=== PATIENT | female | born 2005 | race Two or more races ===

== ENCOUNTER 2024-05-16 09:58 | Inpatient (IN) | payer OTHER, MEDICAID ==
[~2024-05-16] VITALS: Ht 152.4 cm; Wt 53.5 kg
[2024-05-16 10:41] LABS: Basophils # (auto) 0.1 10 ^3/uL (0-0.2); Basophils % (auto) 1.2 % (0.0-2.0); Eosinophils # (auto) 0.1 10 ^3/uL (0-0.8); Eosinophils % (auto) 0.9 % (0.0-7.0); Hematocrit 33.9 % (36.0-46.0); Hemoglobin 11.9 g/dL (12.2-16.2); Lymphocytes % (auto) 19.5 % (10.0-50.0); Mean Corpuscular Hemoglobin 31.4 pg (28.0-32.0); Mean Corpuscular Hgb Conc. 35.1 g/dL (32.0-36.0); Mean Corpuscular Volume 89.6 fL (80.0-100.0); Monocytes # (auto) 0.6 10 ^3/uL (0-1.3); Monocytes % (auto) 5.4 % (0.0-12.0); Neutrophils # (auto) 7.5 10 ^3/uL (1.6-8.6); Platelet Count (auto) 261 10^3/uL (140-450); Red Blood Cells 3.78 10^6/uL (4.0-5.20); Red Cell Distribution Width 14.2 % (11.8-14.3); White Blood Cell 10.3 10^3/uL (4.4-10.8)
[2024-05-16 10:59] LABS: Albumin 4.1 g/dL (3.2-4.8); Anion Gap 12 (5-15); Aspartate Aminotransferase 22 U/L (13-40); BUN/Creatinine Ratio 10.9 (10.0-20.0); Calcium 9.5 mg/dL (8.7-10.4); Carbon Dioxide 21 mmol/L (20-31); Chloride 104 mmol/L (98-107); Glucose 81 mg/dL (74-106); Potassium 3.9 mmol/L (3.5-5.1); Sodium 137 mmol/L (136-145)
[2024-05-16 11:00] LABS: Alanine Aminotransferase < 9 U/L (7-40); Alkaline Phosphatase 176 U/L (46-116); Bilirubin, Total 0.6 mg/dL (0.2-1.0); Blood Urea Nitrogen 7 mg/dL (9-23)
[2024-05-16] MEDS ORDERED: NALBUPHINE HCL 10 MG/1ml INJECTION IV PRN (11:00)
[2024-05-16 11:16] LABS: INR 0.89 (0.9-1.15); Partial Thromboplastin Time 25.4 SEC (24.5-34.5); Prothrombin Time 9.5 sec (9.3-11.8)
[2024-05-16 11:29] LABS: Urine Bacteria None Seen /hpf (None Seen)
[2024-05-16 11:56] LABS: Amphetamine Screen, Urine Neg (NEGATIVE); Barbiturate Scree,Urine Neg (NEGATIVE); Benzodiazephine Screen, Urine Neg (NEGATIVE); Cannabinoid Screen, Urine Neg (NEGATIVE); Cocaine Screen, Urine Neg (NEGATIVE); Opiate Scree,Urine Neg (NEGATIVE); Phencyclidine Screen, Urine Neg (NEGATIVE)
--- NOTE | 2024-05-16 12:02 | DVH ---
LIMITED OB ULTRASOUND > 14 WKS: HISTORY: labor. TECHNIQUE: Multiple real-time grayscale images of the gravid uterus with duplex Doppler color flow an d M-mode spectral analysis. COMPARISON: None FINDINGS: IUP single live fetus at 36 weeks 0 days based on composite averages of the BPD, head circumference, abdominal circumference and femur length. Estimated weight 2567 grams. heart rate 131 beats per minute. NAIF 12.9 cm Cervix is open. Cephalic presentation Grade 3 placenta without previa or abruption, in posterior position. IMPRESSION: 1. IUP single live fetus at 36 weeks 0 days AUA corresponding to an GIOVANNI of 06/13/2024. 2. Cervix appears open. 3. Cephalic presentation. No evidence of placenta previa or abruption.
[2024-05-16 12:21] LABS: Urine Blood 3+ /uL (Negative); Urine Clarity Clear (Clear); Urine Color Light-Brown (Yellow); Urine Protein, UAD Negative (Negative); Urine Specific Gravity 1.009 (1.001-1.035); Urine Squamous Epithelial Cell FEW /hpf (<5); Urine Urobilinogen Normal (Negative); Urine WBC 9 /HPF (0-5)
[2024-05-16] MEDS: LACTATED RINGER'S 1,000 ML IV SCH (15:00)
[2024-05-16] MEDS: PENICILLIN G POT 5MIL/D5 50ML 50 ML IV ONE (15:01)
[2024-05-16] MEDS: BETAMETHASONE ACET (30mg/5ml) 5ml Vial 6mg/ml IM ONE (15:01)
[2024-05-16] MEDS: ROPIVACAINE HCL 200 ML ONE (16:09)
[2024-05-16] MEDS: PENICILLIN G POTASSIUM 2,500,000 UNITS in D5W 5% 50 ML IV SCH (18:50)
[2024-05-16] MEDS ORDERED: LIDOCAINE 2%HCL (LOCAL ANESTH.) INJ 20ML MDV ONE (19:20)
--- NOTE | 2024-05-16 23:04 | DVHHP2 ---
OB CC & HPI Date Date of Admission: May 16, 2024 Patient Identification: : 2 Para: 0 EDC: May 16, 2024 EGA: 35 5/7 weeks Chief Complaints: Reason for admission: active labor Other reason for admission: Pre term active labor Admission Nurse Assessment Rev: Yes History of Present Complaints [place] patient from [place] [facility] , [place], and [place] ; no records immediately available; By hx no sig problems Past Medical History Cardiac: No pertinent Hx Pulmonary: No pertinent Hx Central Nervous System: No pertinent Hx GI: No pertinent Hx Hemotology/Oncology: No pertinent Hx Hepatobiliary: No pertinent Hx Psychiatric: No pertinent Hx Musculoskeletal: No pertinent Hx Rheumotologic: No pertinent Hx Infectious Disease: No peritnent Hx ENT: No pertinent Hx Renal/: No pertinent Hx Endocrine: No pertinent Hx Dermatology: No pertinent Hx Past Surgical History: No pertinent Hx OB History OB History Care: Limited Care Ultrasounds: Normal mid trimester US (per patients verbal) Obstetrical Complications: None Medical Complications: None Allergies: Coded Allergies: Nitrofurantoin (Verified Allergy, Unknown, 05/16/24) Current Medications Current Medications Medications (Trade) Dose Ordered Sig/Janeen Route PRN Reason Start Time Stop Time Status Last Admin Lactated Ringer's 1,000 ml @ 125 mls/hr Q8H IV 05/16/24 11:00 05/16/24 15:00 Nalbuphine HCl (Nubain) 10 mg Q4HP PRN IV MODERATE PAIN (4-6 PAIN SCALE) 05/16/24 11:00 Penicillin G Potassium 7899101 units/Dextrose 50 ml @ 100 mls/hr Q4H IV 05/16/24 15:00 05/16/24 18:50 Witch Jamilah (Tucks) 1 pad PRN PRN TOP PERINEAL AREA DISCOMFORT 05/16/24 11:00 Sodium Lauryl Sulfate (Phisoderm) 240 ml PRN PRN TOP PERINEAL AREA DISCOMFORT 05/16/24 11:00 Benzocaine (Dermoplast) 1 applic PRN PRN TOP PERINEAL AREA DISCOMFORT 05/16/24 11:00 Lidocaine HCl (Xylocaine) 20 ml ONCE PRN IJ PERINEAL AREA DISCOMFORT 05/16/24 11:00 Family & Social History Family/Social History Blood Type: A+ Rubella: unknown RPR/VDRL: Negative GBS Status: Unknown HBsAG: Unknown Review of Systems Constitutional: No symptom reported Ears, Nose, & Throat: No symptom reported Eyes: No symptom reported Pulmonary/Respiratory: No symptom reported Cardiovascular: No symptom reported Gastrointestinal: No symptom reported Genitourinary: No symptom reported Musculoskeletal: No symptom reported Skin: No symptom reported Psychiatric: No symptom reported Endocrine: No symptom reported Hemotologic/Lymphatic: No symptom reported OB Admission Exam Physical Exam HEENT: TMs Normal, Fontanelles Normal, Nasal Mucosa Normal, Eyes non-injected, Oropharynx Normal, PERRLA, Moist Membranes, EOMI Heart: Rhythm Normal Lungs: Clear Abdomen: Non tender Extremities: Normal Reflexes: Normal Cervical Dilatation: 5cm Effacement: 75% Station: -1 Membranes: Intact Heart Rate: 140's Accelerations: Accelerations Present Decelerations: No Decelerations Short Term Variability: Present Intermediate Variability: Average (6-25) Contractions on Admission: < 5 Minutes Apart Intensity: Moderate OB Plan Plan Admitting Diagnosis: Pre term labor Labor 35 + weeks Plan: Expectant Management ERIN TRIPP DO May 16, 2024 23:04
--- NOTE | 2024-05-16 23:14 | LDN2 ---
Labor and Delivery Note Date 05/16/24 Age 19 2 Para 0 EDC 35 5/7 weeks EGA 35 weeks 5/7 days Diagnosis Pre term Labor 35 5/7 Vaginal Delivery: VTX Vacuum Assisted: Yes (Vacuum placed secondary to varibles fht slow recovery to baseline at zero station , OP position, Vacuum placed to rotate vertex about 4 contrations. severe scalp molding and hair made it very difficult to get seal with [place].. It popped off twice or rather lost suction seal twice; Using finger tip pressure and rotation the vertex essentially delivered spontaneously) Apgars 3/5/6 Nuchal Cord Transected: Yes (loose x1 cord very brittle as it broke while reducing so blood gas couldn't be performed with umbilical blood) Labs Laboratory Tests 05/16/24 10:15: Hepatitis B Surface Antigen Negative, HIV (1&2) Antibody Negative Blood Bank 05/16/24 10:15: Blood Type A POSITIVE Complications none Conditions stable guarded Bi Tester none present ... respiratory team present for delivery Comments/Significant Med Gary Infant transferred to [facility] ERIN TRIPP DO May 16, 2024 23:14
[2024-05-16] MEDS: LACT. RINGERS/OXYTOCIN 20UNITS 500 ML IV ONE ×2 (23:37→23:38)
[2024-05-16] MEDS: LIDOCAINE 2%HCL (LOCAL ANESTH.) INJ 20ML MDV IJ PRN (23:41)
[2024-05-16] MEDS: PHISODERM TOP SOLN 240ML BTL TOP PRN (23:44)
[2024-05-16] MEDS: WITCH HAZEL-GLYCERIN PAD TOP PRN (23:44)
[2024-05-16] MEDS: DERMOPLAST 60ML BOTTLE TOP PRN (23:44)
[2024-05-17 03:00] VITALS: RESP 16
[2024-05-17] MEDS ORDERED: ACETAMINOPHEN 325 MG TAB PO PRN (04:45)
[2024-05-17] MEDS ORDERED: ONDANSETRON ODT 4 MG TAB PO PRN (04:45)
--- NOTE | 2024-05-17 06:06 | DVHPN2 ---
Chief Complaints Patient reports: No new complaints, Feels better Nursing reports: No new complaints, No abdominal pain, No chest pain, No dizziness, No cough Objective Vitals Vital Signs Date Time Temp Pulse Resp B/P (MAP) Pulse Ox O2 Delivery O2 Flow Rate FiO2 05/17/24 03:00 16 05/16/24 23:00 Room Air Medications Current Medications Medications (Trade) Dose Ordered Sig/Janeen Route PRN Reason Start Time Stop Time Status Last Admin Acetaminophen (Tylenol Tablet) 650 mg Q4HP PRN PO MILD PAIN (1-3 PAIN SCALE) 05/17/24 04:45 Benzocaine (Dermoplast) 1 applic PRN PRN TOP PERINEAL AREA DISCOMFORT 05/16/24 11:00 05/16/24 23:44 Docusate Sodium (Colace Capsule) 200 mg HS PO 05/17/24 22:00 Ibuprofen (Motrin Tablet) 600 mg Q6HP PRN PO MODERATE PAIN (4-6 PAIN SCALE) 05/17/24 04:45 Lactated Ringer's 1,000 ml @ 125 mls/hr Q8H IV 05/16/24 11:00 05/16/24 15:00 Lidocaine HCl (Xylocaine) 20 ml ONCE PRN IJ PERINEAL AREA DISCOMFORT 05/16/24 11:00 05/16/24 23:41 Nalbuphine HCl (Nubain) 10 mg Q4HP PRN IV MODERATE PAIN (4-6 PAIN SCALE) 05/16/24 11:00 Ondansetron HCl (Zofran Po) 4 mg Q4HPRN PRN PO NAUSEA / VOMITING 05/17/24 04:45 Penicillin G Potassium [id number] units/Dextrose 50 ml @ 100 mls/hr Q4H IV 05/16/24 15:00 05/16/24 18:50 Sodium Lauryl Sulfate (Phisoderm) 240 ml PRN PRN TOP PERINEAL AREA DISCOMFORT 05/16/24 11:00 05/16/24 23:44 Witch Jamilah (Tucks) 1 pad PRN PRN TOP PERINEAL AREA DISCOMFORT 05/16/24 11:00 05/16/24 23:44 General: Normal Neck: Normal Lungs: Normal Cardiovascular: Normal Abdominal: Normal (uterus 10 week size firm) Musculoskeletal: Normal Extremities: Normal Skin: Normal Neurological: Normal Studies Laboratory Tests 3/24/25 10:15 Test 05/16/24 10:15 Range/Units Serum Glucose 81 74-106 mg/dL Ass/Plan Assessment PPD #1 stable and improved Baby transferred 35 weeks [facility]'s Plan see DC orders see DC summary ERIN TRIPP DO May 17, 2024 06:06
[2024-05-17] MEDS: IBUPROFEN 600 MG TAB PO PRN (06:10)
--- NOTE | 2024-05-17 06:10 | DVHDS2 ---
Discharge Summary Date of Admission May 16, 2024 at 11:00 Date of Discharge: May 17, 2024 Admitting Diagnosis PTL 35 wks active labor Labs/Diagnostic Data: Laboratory Results Test 05/16/24 10:30 05/16/24 10:15 Urine Color Light-brown (Yellow) Urine Clarity Clear (Clear) Urine pH 6.0 (5.0-9.0) Urine Specific [place] 1.009 (1.001-1.035) Urine Protein Negative (Negative) Urine Ketones 2+ (Negative) Urine Blood 3+ /uL (Negative) Urine Nitrite Negative (Negative) Urine Bilirubin Negative (Negative) Urine Urobilinogen Normal mg/dL (Negative) Urine Leukocyte Esterase 1+ /uL (Negative) Urine RBC 22 /hpf (0 - 4) Urine Microscopic WBC 9 /HPF (0-5) Urine Squamous Epithelial Cells Few /hpf (<5) Urine Bacteria None seen /hpf (None Seen) Urine Glucose Normal mg/dL (Normal) Urine Opiates Screen Neg (NEGATIVE) Urine Fentanyl Screen Neg (NEGATIVE) Urine Barbiturates Screen Neg (NEGATIVE) Urine Phencyclidine Screen Neg (NEGATIVE) Urine Amphetamines Screen Neg (NEGATIVE) Urine Benzodiazepines Screen Neg (NEGATIVE) Urine Cocaine Screen Neg (NEGATIVE) Urine Cannabinoids Screen Neg (NEGATIVE) White Blood Count 10.3 10^3/uL (4.4-10.8) Red Blood Count 3.78 10^6/uL (4.0-5.20) Hemoglobin 11.9 g/dL (12.2-16.2) Hematocrit 33.9 % (36.0-46.0) Mean Corpuscular Volume 89.6 fL (80.0-100.0) Mean Corpuscular Hemoglobin 31.4 pg (28.0-32.0) Mean Corpuscular Hemoglobin Concent 35.1 g/dL (32.0-36.0) Red Cell Distribution Width 14.2 % (11.8-14.3) Platelet Count 261 10^3/uL (140-450) Mean Platelet Volume 10.5 fL (6.9-10.8) Neutrophils (%) (Auto) 73.0 % (37.0-80.0) Lymphocytes (%) (Auto) 19.5 % (10.0-50.0) Monocytes (%) (Auto) 5.4 % (0.0-12.0) Eosinophils (%) (Auto) 0.9 % (0.0-7.0) Basophils (%) (Auto) 1.2 % (0.0-2.0) Neutrophils # (Auto) 7.5 10 ^3/uL (1.6-8.6) Lymphocytes # (Auto) 2.0 10 ^3/uL (0.4-5.4) Monocytes # (Auto) 0.6 10 ^3/uL (0-1.3) Eosinophils # (Auto) 0.1 10 ^3/uL (0-0.8) Basophils # (Auto) 0.1 10 ^3/uL (0-0.2) Nucleated Red Blood Cells 0.0 % Prothrombin Time 9.5 sec (9.3-11.8) Prothrombin Time INR 0.89 (0.9-1.15) Activated Partial Thromboplast Time 25.4 SEC (24.5-34.5) Sodium Level 137 mmol/L (136-145) Potassium Level 3.9 mmol/L (3.5-5.1) Chloride Level 104 mmol/L (98-107) Carbon Dioxide Level 21 mmol/L (20-31) Anion Gap 12 (5-15) Blood Urea Nitrogen 7 mg/dL (9-23) Creatinine 0.64 mg/dL (0.550-1.02) Glomerular Filtration Rate Calc 129 mL/min (>90) BUN/Creatinine Ratio 10.9 (10.0-20.0) Serum Glucose 81 mg/dL (74-106) Calcium Level 9.5 mg/dL (8.7-10.4) Total Bilirubin 0.6 mg/dL (0.2-1.0) Aspartate Amino Transferase (AST) 22 U/L (13-40) Alanine Aminotransferase (ALT) < 9 U/L (7-40) Alkaline Phosphatase 176 U/L (46-116) Total Protein 7.0 g/dL (5.7-8.2) Albumin 4.1 g/dL (3.2-4.8) Treponema pallidum Antibody Non-reactive (Negative) Hepatitis B Surface Antigen Negative (Negative) Hepatitis C Antibody Negative (Negative) HIV (1&2) Antibody Negative (Negative) Other Laboratory Tests 05/16/24 10:15 Brief Hx & Hospital Course: 1 degree lac Condition at Discharge: Good Final Diagnosis/Problems List Vacuum delivery.... 1st degree vag tear Discharge Disposition: Home Discharge Instruct/Medications Diet: Regular Activity: Light activity (pelvic rest 6 weeks ) Follow Up/Referral: Kadeem or Dr Haney 2 weeks Discharge Statement: "Patient was advised to return to the ER or call 911 if any headaches, dizziness, shortness of breath, chest pain, abdominal pain, bleeding, fevers, or worsening of medical condition. Patient was counseled about treatment plan, medications, possible side effects, patientverbalized understanding. All questions were answered to the best of my ability. This discharge took greater then 30 minutes in planning, reviewing documentation, counseling the patient, and discussing with other team members." ASSESSMENT ASSESSMENT Assessment Visit Coding OBGYN Date of Service: May 17, 2024 Billing Provider: ERIN TRIPP DO CLINICAL PROGRAM CONSULTANT Common Visit Codes: 92899-QMHYUBX INP/OBS CARE (HIGH) CLINICAL PROGRAM CONSULTANT Procedure Codes: 45552-KIG DEL INCLUDING ERIN TRIPP DO May 17, 2024 06:10
[2024-05-17 07:00] VITALS: BP 103/71; PULSE 88; RESP 17; TEMP 97.7; O2SAT 99
[2024-05-17 12:07] LABS: Rubella Antibodies, IgG 1.92 index (Immune >0.99)
[2024-05-17] MEDS ORDERED: DOCUSATE SOD 100 MG CAP PO SCH (22:00)
[2024-05-18 22:06] LABS: Chlamydia Trachomatis, NAA Negative (Negative); Neisseria gonorrhoeae, NAA Negative (Negative)
== END 2024-05-17 09:18 | disposition home or self-care (01) | DRG 807 ==
LOC: LDRP 09:58 → OBSVTOIN 11:00
PROVIDERS: ADMIT Obstetrics & Gynecology; ATTEND Obstetrics & Gynecology
PROC: 10D07Z6 Extraction of Products of Conception, Vacuum, Via Natural or Artificial Opening (ICD-10-PCS; principal; 2024-05-16)
PROC: 0HQ9XZZ Repair Perineum Skin, External Approach (ICD-10-PCS; 2024-05-16)
DX: O60.14X0 Preterm labor third trimester with preterm delivery third trimester, not applicable or unspecified (principal); Z37.0 Single live birth; Z3A.35 35 weeks gestation of pregnancy; O69.81X0 Labor and delivery complicated by cord around neck, without compression, not applicable or unspecified; O70.0 First degree perineal laceration during delivery
CPT/HCPCS: 36415; 59409; 62282; 76805; 80053; 80307; 81001; 81002; 85025; 85610; 85730; 86703; 86762; 86780; 86803; 86850; 86900; 86901; 87340; 94760; 94762; 96360; 96361; 96365; 96366; G0378; J2540; J2590; J7060